=== PATIENT | female | born 1995 | race Caucasian/White ===

== ENCOUNTER 2023-08-04 16:11 | Outpatient (CLI) | payer MEDICAID ==
[~2023-08-04 16:11] MED LIST: IBUP-1984 PO; NO HOME MEDS; SULF1TAB45 PO
== END 2023-08-04 23:59 | disposition home or self-care (01) ==
LOC: RAD 16:11
PROVIDERS: ATTEND Student in an Organized Health Care Education/Training Program
DX: O28.3 Abnormal ultrasonic finding on antenatal screening of mother (principal); Z3A.36 36 weeks gestation of pregnancy
CPT/HCPCS: 76805